=== PATIENT | male | born 1950 | race Caucasian/White ===

== ENCOUNTER 2017-04-03 23:44 | Emergency (ER) ==
[2017-04-03 23:44] VITALS: BMI 24.2
[2017-04-03 23:58] VITALS: BP 169/92; TEMP 98.8
[2017-04-04] MEDS ORDERED: TORADOL IM STA (00:12)
--- NOTE | 2017-04-04 00:14 | ED.PDOC ---
General ED Provider: Dr. SARA OLIVER Chief Complaint: Back Pain Stated Complaint: Patient states that 66 year old M who has a history of Arthritis on his back. Comes to the ER with complaints of lower back pain that started 2 days ago. not better with aleve. Time Seen by Physician: 00:00 Mode of Arrival: Walk-In Information Source: Patient Nursing and Triage Documentation Reviewed and Agree: Yes Musculoskeletal Complaint Exam - Back Pain Complaint/Exam Mechanism of Injury: Reports: No known trauma Onset/Duration: 2 days Symptoms Are: Still present Timing: Constant Initial Severity: Moderate Current Severity: Moderate Location: Reports: Diffuse (Lower back ) Character: Reports: Sharp Aggravating: Reports: Movements, Bending Associated Signs and Symptoms: Denies: Swelling, Redness, Bruising, Fever, Weakness, Numbness, Tingling, Abdominal pain, Flank pain, Bladder incontinence, Bowel incontinence, Weight loss, Pain with weight bearing Related History: Reports: Similar episode, Previous back injury TAD Risk Factors: Reports: None AAA Risk Factors: Reports: None Cauda Equina Risk Factors: Reports: None Epidural Abcess Risk Factors: Reports: None Related Surgical History: Reports: None Focal Tenderness: Yes Paraspinal Muscle Tenderness: Yes Paraspinal Muscle Spasm: Yes Scoliosis: No Lordosis: No Kyphosis: No SLR Test: Right Negative, Left Negative Hip Motion Testing Pain: Right Negative, Left Negative Focal Weakness: Present: None Focal Sensory Loss: Present: None Gait: Present: Normal Back Picture: 1 - back pain Differential Diagnoses: Arthritis, Strain, Sprain Review of Systems - Review Of Systems Constitutional: Reports: No symptoms Eyes: Reports: No symptoms Ears, Nose, Mouth, Throat: Reports: No symptoms Respiratory: Reports: No symptoms Cardiac: Reports: No symptoms GI: Reports: No symptoms : Reports: No symptoms Musculoskeletal: Reports: Back pain Skin: Reports: No symptoms Neurological: Reports: No symptoms Endocrine: Reports: No symptoms Hematologic/Lymphatic: Reports: No symptoms All Other Systems: Reviewed and Negative Past Medical History - Past Medical History Previously Healthy: Yes Endocrine: Reports: None Cardiovascular: Reports: None Respiratory: Reports: None Hematological: Reports: None Gastrointestinal: Reports: None Genitourinary: Reports: Kidney stones Neuro/Psych: Reports: None Musculoskeletal: Reports: Back Pain Cancer: Reports: None - Surgical History General Surgical History: Reports: Unknown - Family History Family History: Reports: Unknown - Social History Smoking Status: Former smoker Hx Substance Use: No Alcohol Screening: None - Immunizations Tetanus Shot up to Date: (UNKNOWN) Physical Exam - Physical Exam Appearance: No pain distress, Well-nourished Pain Distress: Moderate Eyes: SHAHNAZ, EOMI, Conjunctiva clear ENT: Nose normal, Oropharynx normal Neck: Supple Respiratory: Airway patent, Breath sounds clear, Breath sounds equal, Respirations nonlabored Cardiovascular: RRR, Pulses normal, No rub, No murmur GI/: Soft, Nontender, No masses, Bowel sounds normal, No Organomegaly Musculoskeletal: Normal strength, ROM intact, No edema, No calf tenderness Skin: Warm, Dry, Normal color Neurological: Sensation intact, Motor intact, Reflexes intact, Cranial nerves intact, Alert, Oriented Psychiatric: Affect appropriate, Mood appropriate Critical Care Note - Critical Care Note Total Time (mins): 0 Course - Course Orders, Labs, Meds: Orders Category Date Time Status Ketorolac Tromethamine [Toradol] MEDS 04/04/17 00:12 Discontinued 60 mg IM ONCE STA Medications Discontinued Medications Generic Name Dose Route Start Last Admin Trade Name Freq PRN Reason Stop Dose Admin Ketorolac Tromethamine 60 mg 04/04/17 00:12 04/04/17 00:19 Toradol IM 04/04/17 00:13 60 mg ONCE STA Administration Vital Signs: Temp Pulse Resp BP Pulse Ox 04/03/17 23:45 98.8 F 85 18 169/92 H 97 Departure - Departure Time of Disposition: 00:30 Disposition: HOME SELF-CARE Discharge Problem: Backache Instructions: Acute Low Back Pain (ED) Condition: Fair Pt referred to PMD for follow-up: Yes Additional Instructions: take medications as prescribed Follow up with PCP in 3 days Prescriptions: Tramadol HCl [Ultram] 50 mg PO Q6H PRN #14 tablet PRN Reason: Severe Pain Allergies/Adverse Reactions: Allergies No Known Allergies Allergy (Verified 04/03/17 23:52) Home Medications: Ambulatory Orders Aspirin [Aspirin EC] 81 mg PO DAILYWM 04/03/17 Tramadol HCl [Ultram] 50 mg PO Q6H PRN #14 tablet 04/04/17 Disposition Discussed With: Patient
== END 2017-04-04 00:56 | disposition home or self-care (01) ==
LOC: ED 23:44
DX: M54.5 Low back pain (principal)
CPT/HCPCS: 96372; 99282